=== PATIENT | female | born 1960 | race Caucasian/White ===

== ENCOUNTER 2025-04-30 18:09 | Emergency (ER) | payer BC, SELFPAY ==
[2025-04-30 18:12] VITALS: BP 128/77
[2025-04-30] MEDS: DILAUDID 0.5 MG IV (19:43)
[2025-04-30 19:45] VITALS: BP 136/83
[2025-04-30 20:00] VITALS: BP 132/80
[2025-04-30 20:05] LABS: % Basophils 0.4 % (0-2); % Eosinophils 0.4 % (0-6); % Immature Granulocytes 0.3 % (0-0.5); % Lymphocytes 10.8 % (20.5-51.1); % Monocytes 5.9 % (1.7-9.3); % Neutrophils 82.2 % (42.2-75.2); Absolute Basophils 0.1 10^3/uL (0-0.2); Absolute Eosinophils 0.1 10^3/uL (0-0.7); Absolute Lymphocytes 1.3 10^3/uL (1.2-3.4); Absolute Monocytes 0.7 10^3/uL (0.1-0.6); Absolute Neutrophils 9.7 10^3/uL (1.4-6.5); Hematocrit 39.2 % (37.0-47.0); Hemoglobin 13.4 g/dL (12.0-16.0); Mean Corp Hgb Conc. 34.2 g/dL (33.0-37.0); Mean Corpuscular Hgb 31.8 pg (27.0-31.0); Mean Corpuscular Volume 92.9 fL (81.0-99.0); Mean Platelet Volume 9.2 fL (7.4-10.4); Nucleated Red Blood Cells % 0 %; Platelet Count 231 10^3/uL (130-400); Red Blood Cell Count 4.22 10^6/uL (4.20-5.40); Red Cell Dist. Width 12.6 % (11.5-14.5); White Blood Cell Count 11.9 10^3/uL (4.8-10.8)
[2025-04-30 20:19] LABS: Blood Urea Nitrogen 19 mg/dl (7-17); Calcium 9.6 mg/dl (8.4-10.2); Carbon Dioxide 23 mmol/L (22-30); Chloride 105 mmol/L (98-107); Glucose 107 mg/dl (70-99); Potassium 3.9 mmol/L (3.5-5.1); Sodium 138 mmol/L (135-145); eGFR > 60.00
[2025-04-30] MEDS: TORADOL 15 MG IV (21:41)
[2025-04-30 21:44] VITALS: BP 111/69
[2025-04-30 22:00] VITALS: BP 115/55
--- NOTE | 2025-04-30 22:22 | ED.GENMED ---
History of Present Illness
General
Chief Complaint: Fall
Source: patient
Time Seen by Provider: 04/30/25 18:46
History of Present Illness
History of Present Illness:
64-year-old female presents for evaluation after suffering a fall earlier today. Patient tripped and landed on a curb. She has pain in her anterior right chest wall. She feels short of breath. No abdominal pain. She did not strike her head.
Phy Exam
Physical Exam
Physical Exam:
General: Awake, Alert, Oriented X3. Appears uncomfortable
Vitals: unremarkable
Head: Atraumatic
Eyes: Pupils equal, EOMI
Throat: Airway intact, no exudates
Neck: Trachea midline
Chest: Abrasion noted over the right anterior chest wall. There is tenderness to palpation.
Lungs: Clear and equal b/l
Heart: Regular rate, no murmurs
Abd: Soft, Nontender, No pulsatile mass
Neuro: Nonfocal
Skin: Warm, dry, no rash
Extremities: pulses equal b/l, no edema
Course
Orders/Labs/Results
Orders:
Orders
04/30/25 18:16
CR Ribs-right 3 Vw W/pa Chest* Urgent
Comment:
Reason For Exam: fall
04/30/25 19:33
CT Chest W/o Iv Contrast Urgent
Comment:
Reason For Exam: fall, chest trauma
HYDROmorphone [Dilaudid] 0.5 mg IV NOW STA
04/30/25 19:43
Basic Metabolic Panel Urgent
Complete Blood Count/With Diff Urgent
04/30/25 21:37
Ketorolac [Toradol] 15 mg IV NOW STA
Abnormal Lab Results
04/30/25
19:43
WBC 11.9 H 10^3/uL
(4.8-10.8)
MCH 31.8 H pg
(27.0-31.0)
Absolute Neuts (auto) 9.7 H 10^3/uL
(1.4-6.5)
Absolute Monos (auto) 0.7 H 10^3/uL
(0.1-0.6)
Neutrophils % 82.2 H %
(42.2-75.2)
Lymphocytes % 10.8 L %
(20.5-51.1)
BUN 19 H mg/dl
(7-17)
Glucose 107 H mg/dl
(70-99)
04/30/25 19:43
04/30/25 19:43
Vital Signs
Initial and Last Documented VS:
Initial Vital Signs
Temp Pulse Resp BP Pulse Ox
97.6 F 65 18 128/77 99
04/30/25 18:12 04/30/25 18:12 04/30/25 18:12 04/30/25 18:12 04/30/25 18:12
Last Documented Vital Signs
Temp Pulse Resp BP Pulse Ox
97.6 F 65 18 115/55 96
04/30/25 18:12 04/30/25 18:12 04/30/25 18:12 04/30/25 22:00 04/30/25 22:01
MDM/Problems Addressed
Differential Diagnosis Includes:
Rib fracture, chest wall contusion, pneumothorax
MDM/Problems Addressed:
Patient's chest x-ray shows 2 rib fractures and a tiny pneumothorax. Patient has significant pain. CT obtained to quantify the true number of rib fractures and further assisted pneumothorax. CT shows just the 2 rib fractures but they are
displaced and there is some displacement of the lung from the rib fracture. There is a small pneumo. Patient will require observation for expansion of this pneumo. Patient be transferred to [facility]. Discussed with Dr. Phipps who
accepted the patient
*Radiology
Radiology exam reviewed: radiology read reviewed
*Pulse Oximetry
SaO2: 96
Oxygen Mode of Delivery: Room air
Patient hypoxic: no
*Critical Care Note
Total Time (30-74mins, 75-104mins- exclusive of procedures): Not Applicable
ED Attending Note
-
Portions of this chart may have been created with voice recognition software.� Occasional wrong word or��sound alike� substitutions may have occurred due to the inherent limitations of voice recognition software.
Discharge Plan
Departure
Patient Disposition: Acute Care Hospital
Date of Disposition: 04/30/25
Time of Disposition: 21:38
Condition: Fair
Discharge Problem:
Ribs, multiple fractures, Pneumothorax on right
Referrals:
La Hernadez MD [Family Provider, Internal Medicine]
Hospital Transfer
Other hospital: [place]
I certify that the patient requires transfer: Yes
Discussed case with accepting physician: Dr Phipps
Reason for transfer: higher level of care and specialties available
Interventions
Interventions:
*Risk Screen - Suicide Last Done: 04/30/25 18:12
*General Assessment Last Done: 04/30/25 18:46
*Neglect/Abuse Screening Last Done: 04/30/25 18:12
*ED- Fall Risk Assessment Last Done: 04/30/25 18:46
*ED COVID-19 Vaccine History Last Done: 04/30/25 18:46
ED-Musculoskeletal Assessment Last Done: 04/30/25 19:36
ED- Neurological Assessment Last Done: 04/30/25 19:36
ED-Skin Assessment Last Done: 04/30/25 19:41
Discharge Date and Time
Print Language: MACEDONIAN
== END 2025-04-30 23:05 | disposition short-term general hospital (02) ==
LOC: EMR 18:09
PROVIDERS: EMERGENCY PHYSICIAN Emergency Medicine; FAMILY PHYSICIAN Internal Medicine
DX: S22.41XA Multiple fractures of ribs, right side, initial encounter for closed fracture (principal); S27.0XXA Traumatic pneumothorax, initial encounter; S20.311A Abrasion of right front wall of thorax, initial encounter; W01.0XXA Fall on same level from slipping, tripping and stumbling without subsequent striking against object, initial encounter
CPT/HCPCS: 99285; 96374; 96375; 71101; 71250; 80048; 85025